=== PATIENT | female | born 1965 | race Caucasian/White ===

== ENCOUNTER → 2018-02-28 | Outpatient (CLI) | payer OTHER ==
[~2018-02-28] MED LIST: GADOBUTROL 10 ML VIAL IVP ONE
== END ==
LOC: FIMAGING 06:54
PROVIDERS: ATTEND Internal Medicine Hematology & Oncology
DX: C20 Malignant neoplasm of rectum (principal)
CPT/HCPCS: A9585

== ENCOUNTER 2018-07-15 10:04 | Day surgery (SDC) | payer OTHER ==
[2018-07-15] MEDS ORDERED: ceFAZolin 2 GM/DEXTROSE 100 ML IV ONE (10:13)
[2018-07-15] MEDS ORDERED: LR 1,000 ML IV ONE (10:14)
[2018-07-15] MEDS ORDERED: BUPIVACAINE 0.5% 30 ML SDV ONE (11:42)
--- NOTE | 2018-07-15 11:52 | PDHPUP ---
History & Physical Update H&P update statement: This history and physical update is based on an assessment of the patient which was completed after admission or registration (within 24 hours), but prior to the surgery/procedure. H&P update: H&P reviewed & patient examined, no change in patient's condition since H&P completed
--- NOTE | 2018-07-15 12:00 | PDANEPAE ---
ANE History of Present Illness L SC port placement for chemo ANE Past Medical History - Cardiovascular History Hx Hypertension: No Hx Arrhythmias: No Hx Chest Pain: No Hx Coronary Artery / Peripheral Vascular Disease: No Hx CHF / Valvular Disease: No Hx Palpitations: No - Pulmonary History Hx COPD: No Hx Asthma/Reactive Airway Disease: No Hx Recent Upper Respiratory Infection: No Hx Oxygen in Use at Home: No Hx Sleep Apnea: No Sleep Apnea Screening Result - Last Documented: Negative - Neurologic History Hx Cerebrovascular Accident: No Hx Seizures: No Hx Dementia: No - Endocrine History Hx Diabetes: No Endocrine History Comment: hypothyroid - Renal History Hx Renal Disorders: No - Liver History Hx Hepatic Disorders: Yes Hepatic History Comment: mets to liver - had markers placed this month to begin chemo - Neurological & Psychiatric Hx Hx Neurological and Psychiatric Disorders: No - Cancer History Hx Cancer: Yes Cancer History Comment: rectal cancer w/mets to liver - Congenital Disorder History Hx Congenital Disorders: No - GI History Hx Gastrointestinal Disorders: Yes Gastrointestinal History Comment: rectal CA. temporary illeostomy - Other Health History Other Health History: none - Chronic Pain History Chronic Pain: No - Surgical History Prior Surgeries: markers placed to liver 06/2018. colorectal surgery for CA tumor removal, 05/2018. bilat knee surgeries. right shoulder surgery. appendectomy ANE Review of Systems Review of Systems: - Exercise capacity METS (RN): 4 METS ANE Patient History - Allergies Allergies/Adverse Reactions: gluten Allergy (Verified 07/14/18 11:50) celiac disease shellfish derived Allergy (Verified 07/14/18 11:50) tongue, throat swelling - Home Medications Home medications: home medication list seen and reviewed Home Medications: Adult One Daily Multivit Tab 07/14/18 [Last Taken 07/12/18] Fish Oil 1000 mg (*) 07/14/18 [Last Taken 07/12/18] Levothyroxine 07/14/18 [Last Taken 07/15/18 06:00] - NPO status NPO Status: no food or drink >8 hours NPO Since - Liquids (Date): 07/14/18 NPO Since - Liquids (Time): 08:30 NPO Since - Solids (Date): 07/15/18 NPO Since - Solids (Time): 19:00 - Anes Hx Anes Hx: no prior problems - Smoking Hx Smoking Status: Never smoked - Alcohol Use Alcohol Use: Occasionally - Family Anes Hx Family Anes Hx: none Family Hx Anesthesia Complications: none ANE Labs/Vital Signs - Vital Signs Blood Pressure: 105/62 Heart Rate: 63 Respiratory Rate: 16 O2 Sat (%): 100 Height: 175.26 cm Weight: 57.606 kg ANE Physical Exam - Airway Neck exam: FROM Mallampati Score: Class 2 - Pulmonary Pulmonary: no respiratory distress - Cardiovascular Cardiovascular: regular rate and rhythym - ASA Status ASA Status: I ANE Anesthesia Plan Anesthesia Plan: GA w LMA
[2018-07-15] MEDS ORDERED: LIDOCAINE 2% 100 MG/5 ML SYR ONE (12:16)
[2018-07-15] MEDS ORDERED: PROPOFOL/EMULSION 500 MG/50 ML BOTTLE IV ONE (12:16)
[2018-07-15] MEDS ORDERED: fentaNYL 100 MCG/2 ML INJ ONE (12:16)
[2018-07-15] MEDS ORDERED: LIDOCAINE 2% JELLY 5 ML TUBE ONE (12:18)
[2018-07-15] MEDS ORDERED: PROPOFOL 200 MG/20 ML VIAL ONE (12:48)
[2018-07-15] MEDS ORDERED: BACITRACIN ZINC 14.2 GM OINTTUBE TP ONE (12:55)
[2018-07-15] MEDS ORDERED: HYDROCODONE/APAP 5/325 TAB PO PRN (13:24)
[2018-07-15] MEDS ORDERED: PHENYLEPHRINE HCL 100 MCG/ML SYR IVP PRN (13:24)
[2018-07-15] MEDS ORDERED: DEXAMETHASONE 4 MG/ML VIAL IVP PRN (13:24)
[2018-07-15] MEDS ORDERED: ALBUTEROL 3 ML DEYVIAL IH PRN (13:24)
[2018-07-15] MEDS ORDERED: ONDANSETRON 4 MG/2 ML VIAL IVP PRN (13:24)
[2018-07-15] MEDS ORDERED: NALOXONE HCL 0.4 MG/ML INJ IVP PRN (13:24)
[2018-07-15] MEDS ORDERED: ACETAMINOPHEN 500 MG TAB PO PRN (13:24)
[2018-07-15] MEDS ORDERED: LR 500 ML IV PRN (13:24)
[2018-07-15] MEDS ORDERED: MEPERIDINE 25 MG/0.5 ML AMP IVP PRN (13:24)
[2018-07-15] MEDS ORDERED: fentaNYL 100 MCG/2 ML INJ IVP PRN (13:24)
[2018-07-15 15:26] VITALS: BP 107/59
--- NOTE | 2018-07-15 15:39 | POSTANESTH ---
Post Anesthetic Evaluation Cardiovascular Status: Normal, Stable Respiratory Status: Normal, Stable Level of Consciousness/Mental Status: Can Participate in Eval Pain Control: Adequate, Prn Tx Ordered Nausea/Vomiting Control: Adequate, Prn Tx Ordered Complications Possibly Related to Anesthesia: None Noted
--- NOTE | 2018-07-18 13:19 | GOP ---
DATE OF OPERATION: 07/15/2018 SURGEON: Timmy Espinoza MD PREOPERATIVE DIAGNOSIS: Rectal cancer. POSTOPERATIVE DIAGNOSIS: PROCEDURE PERFORMED: Left subclavian port with fluoroscopic guidance. FINDINGS: The patient was found to have good flow and good position. DESCRIPTION OF PROCEDURE: The patient was taken to the operating room where she received satisfactor y general endotracheal anesthesia by Dr. Marroquin. She was placed in the supine position and prepped an d draped in the usual sterile fashion and then placed in Trendelenburg. A single stick was made in t he left subclavian vein. Guidewire was introduced. Position was confirmed with fluoroscopy. A subc utaneous pocket was made in the 2nd intercostal space. Port tubing was passed from that pocket to th e subclavian insertion site. It was trimmed to the appropriate length. Using fluoroscopic guidance, I introduced through the introducer sheath the dilator system. Good backflow was achieved. The cat heter was flushed with heparin saline. The port was secured to the fascia with 3-0 Vicryl. The pock et was closed with 3-0 Vicryl for the subcutaneous and 4-0 Prolene subcuticular stitch for the skin. The entrance site was closed with Prolene mattress suture. She tolerated the procedure well and baltazar en to the recovery room in good condition. No complications. Blood loss negligible. /[id number]/MODL
== END 2018-07-15 15:20 | disposition home or self-care (01) ==
LOC: FSGY 10:04
PROVIDERS: ATTEND Surgery
PROC: 0JH60XZ Insertion of Tunneled Vascular Access Device into Chest Subcutaneous Tissue and Fascia, Open Approach (ICD-10-PCS; principal; 2018-07-15 11:30)
PROC: 02HV33Z Insertion of Infusion Device into Superior Vena Cava, Percutaneous Approach (ICD-10-PCS; principal; 2018-07-15 11:30)
DX: Z45.2 Encounter for adjustment and management of vascular access device (principal); C20 Malignant neoplasm of rectum
CPT/HCPCS: C1788; J0690; J1642; J2001; J2704; J3010